=== PATIENT | female | born 1990 | race Caucasian/White ===

== ENCOUNTER → 2017-12-15 | Outpatient (CLI) | payer OTHER ==
--- NOTE | 2017-12-15 10:47 | XR ---
EXAMINATION TYPE: XR chest 2V DATE OF EXAM: 12/15/2017 COMPARISON: None INDICATION: Intercostal pain contusion left RIBS 2 weeks prior, cough TECHNIQUE: Frontal and lateral views of the chest are obtained. FINDINGS: The heart size is normal. The pulmonary vasculature is normal. The lungs are clear. No pneumothorax is evident. No displaced rib fractures are evident. IMPRESSION: 1. No acute pulmonary process.
== END | disposition home or self-care (01) ==
LOC: RADXRMAIN 10:02
PROVIDERS: ATTEND Family Medicine
DX: R07.82 Intercostal pain (principal)
CPT/HCPCS: 71046

== ENCOUNTER → 2020-03-20 | Outpatient (CLI) | payer OTHER ==
--- NOTE | 2020-03-20 12:59 | MM ---
Reason for exam: clinical finding. History: Took hormonal contraceptives for 4 years. Physical Findings: Nurse did not find any significant physical abnormalities on exam. MG 3D Diag Mammo W/Cad LITO Bilateral CC and MLO view(s) were taken. CC with magnification and MLO with magnification view(s) were taken of the left breast. No prior studies available for comparison. The breast tissue is extremely dense which could obscure a lesion on mammography. Finding: There are a few indeterminate faint, fine, regional calcifications in the upper outer quadrant, middle position of the left breast. No suspicious cluster of calcifications. These results were verbally communicated with the patient and result sheet given to the patient on 03/20/20. ASSESSMENT: Benign, BI-RAD 2 RECOMMENDATION: Routine screening mammogram of both breasts at age 33. Manage on a clinical basis with regard to palpable.
--- NOTE | 2020-03-20 13:00 | USB ---
Reason for exam: clinical finding. History: Took hormonal contraceptives for 4 years. US Breast BILAT Technologist: Ann Marie Braswell Right complete breast ultrasound includes all four quadrants, the retroareolar region and axilla. Finding demonstrates no cystic or solid lesion seen. Left complete breast ultrasound includes all four quadrants, the retroareolar region and axilla. Finding demonstrates no cystic or solid lesion seen. No abnormality at BB on left. These results were verbally communicated with the patient and result sheet given to the patient on 03/20/20. ASSESSMENT: Negative, BI-RAD 1 RECOMMENDATION: Routine screening mammogram of both breasts at age 33. Manage on a clinical basis with regard to palpable.
--- NOTE | 2020-03-20 14:01 | US ---
EXAMINATION TYPE: US pelvic complete DATE OF EXAM: 03/20/2020 COMPARISON: NONE CLINICAL HISTORY: R10.2 PELVIC AND PERINEAL PAIN. Patient stated has LLQ pain x years; here also for Br lump(s); TECHNIQUE: Transabdominal (TA). Transabdominal sonographic images of the pelvis were acquired. Date of LMP: 02/27/2020 EXAM MEASUREMENTS: Uterus: 10.0 x 5.7 x 4.2 cm Endometrial Stripe: 1.3 cm Right Ovary: 2.8 x 2.0 x 1.4 cm Left Ovary: 3.2 x 3.1 x 2.0 cm 1. Uterus: Anteverted, couple of Nabothian Cysts seen in cervix approximately = 1.1 x 1.2 x 1.1cm 2. Endometrium: thickness is wnl for Day 23 LMP 3. Right Ovary: multiple small follicles, wnl 4. Left Ovary: wnl,multiple small follicles Spectral, color and waveform Doppler imaging shows good arterial and venous flow within the ovaries ; there is no evidence for ovarian torsion. 5. Bilateral Adnexa: wnl 6. Posterior cul-de-sac: complex fluid area seen posteriorly = 3.0 x 1.8 x 1.9cm IMPRESSION: 1. Some complex fluid is within the cul-de-sac. This may be physiologic. Follow-up pelvic ultrasound can be performed to reevaluate this finding. 2. Pelvic ultrasound is otherwise unremarkable.
== END | disposition home or self-care (01) ==
LOC: RADUSWWP 09:19
PROVIDERS: ATTEND Family Medicine
DX: N63.20 Unspecified lump in the left breast, unspecified quadrant (principal); N63.10 Unspecified lump in the right breast, unspecified quadrant; R10.2 Pelvic and perineal pain
CPT/HCPCS: 76856; 77062; 77066

== ENCOUNTER → 2020-05-29 | Outpatient (CLI) | payer OTHER ==
--- NOTE | 2020-05-29 08:20 | US ---
EXAMINATION TYPE: US pelvic complete DATE OF EXAM: 05/29/2020 COMPARISON: 03/20/2020 CLINICAL HISTORY: 29-year-old female R93.89 PELVIC AND PERINEAL PAIN. TECHNIQUE: Transabdominal sonographic images of the pelvis were acquired. Date of LMP: 05/25/20 FINDINGS: EXAM MEASUREMENTS: Uterus: 9.6 x 5.9 x 4.2 cm Endometrial Stripe: 0.4 cm Right Ovary: 3.2 x 2.4 x 1.9 cm Left Ovary: 4.0 x 2.5 x 2.4 cm 1. Uterus: Anteverted . Cervical nabothian cyst = 1.1 cm 2. Endometrium: wnl 3. Right Ovary: wnl, with follicles 4. Left Ovary: wnl, with follicles 5. Bilateral Adnexa: wnl 6. Posterior cul-de-sac: wnl IMPRESSION: Follicular change in both ovaries. Incidental 1.1 cm cervical nabothian cyst. No specific abnormality seen.
== END | disposition home or self-care (01) ==
LOC: RADUSWWP 07:02
PROVIDERS: ATTEND Family Medicine
DX: N88.8 Other specified noninflammatory disorders of cervix uteri (principal)
CPT/HCPCS: 76856

== ENCOUNTER → 2020-09-27 | Outpatient (CLI) | payer OTHER ==
--- NOTE | 2020-09-27 09:52 | US ---
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 1.9 X 1.3 x 1.4 cm mixed cystic and solid, anechoic nodule, which is wider than tall, with corine h margins, without echogenic foci. Prior size: 1.9 x .9 x 1.4 cm 2. 1.2 X .7 x 1.3 cm cystic or almost completely cystic, anechoic nodule, which is , with smooth ma rgins, without echogenic foci. Prior size: .7 x .4 x .7 cm LEFT: # of nodules measured on left: 1 1. 3.5 X 2.3 x 3.6 cm mixed cystic and solid, hypoechoic nodule, which is wider than tall, with smo oth margins, without echogenic foci. Prior size: 2.4 x 2.5 x 2.6 cm ISTHMUS: # of nodules measured in the isthmus: .3 Bilateral neck scanned, no evidence of lymphadenopathy. Stable heterogeneous slightly enlarged thyroid with stable bilateral nodules, dominant nodules were s ampled 2014. IMPRESSION: As above. No new greater than 1 cm nodules. Correlate with 2015 ultrasound sampling.
== END | disposition home or self-care (01) ==
LOC: RADUSWWP 08:34
PROVIDERS: ATTEND Family Medicine
DX: E04.2 Nontoxic multinodular goiter (principal)
CPT/HCPCS: 76536

== ENCOUNTER → 2021-02-19 | Outpatient (CLI) | payer OTHER ==
[2021-02-19 20:14] LABS: Thyroid Peroxidase Antibodies <28.0 U/mL (0.0-60.0)
== END | disposition home or self-care (01) ==
LOC: LABWHC1 08:05
PROVIDERS: ATTEND Family Medicine
DX: E05.90 Thyrotoxicosis, unspecified without thyrotoxic crisis or storm (principal)
CPT/HCPCS: 36415; 84439; 84443; 84481; 86376; 86800

== ENCOUNTER → 2022-02-21 | Outpatient (CLI) | payer OTHER ==
[2022-02-21 23:23] LABS: T4, Free (Free Thyroxine) 1.12 ng/dL (0.800-1.800)
== END | disposition home or self-care (01) ==
LOC: LABWHC1 15:45
PROVIDERS: ATTEND Family Medicine
DX: E04.2 Nontoxic multinodular goiter (principal)
CPT/HCPCS: 36415; 84439; 84443